=== PATIENT | female | born 1960 | race Caucasian/White ===

== ENCOUNTER → 2016-09-20 | Outpatient (REF) | payer MEDICARE, BC ==
[2016-09-20 19:58] LABS: THYROXINE (T4) 13.7 UG/DL (4.5-12.0)
== END ==
LOC: M LABDRAWC 16:17
PROVIDERS: ATTEND Family Medicine Adult Medicine
DX: N02.9 Recurrent and persistent hematuria with unspecified morphologic changes (principal); E03.9 Hypothyroidism, unspecified; Z79.899 Other long term (current) drug therapy

== ENCOUNTER → 2018-04-03 | Outpatient (REF) | payer MEDICARE, BC ==
[2018-04-03 18:26] LABS: FREE T3 3.3 PG/ML (2.2-4.0); FREE T4 1.43 NG/DL (0.76-1.46); THYROID STIMULATING HORMONE 0.158 uIU/ML (0.358-3.740); THYROXINE (T4) 13.1 UG/DL (4.5-12.0)
[2018-04-03 18:27] LABS: TOTAL T3 112.8 NG/DL (60.0-181.0)
== END ==
LOC: M LABDRWCV 16:22
PROVIDERS: ATTEND Family Medicine Adult Medicine
DX: E03.9 Hypothyroidism, unspecified (principal); E07.89 Other specified disorders of thyroid

== ENCOUNTER 2018-08-13 06:14 | Emergency (ER) | payer MEDICARE, BC ==
[~2018-08-13] VITALS: Ht 157.5 cm; Wt 72.7 kg
[2018-08-13] MEDS ORDERED: CYTO50TA PO (06:22)
[2018-08-13] MEDS ORDERED: PREV1CAP PO (06:22)
[2018-08-13] MEDS ORDERED: SYNT100T PO (06:22)
[2018-08-13] MEDS ORDERED: HYDR25TAB PO (06:22)
--- NOTE | 2018-08-13 06:56 | REPVR ---
EXAM: CT Head Without Contrast EXAM DATE/TIME: 08/13/2018 6:30 AM CLINICAL HISTORY: 57 years old, female; Pain; Headache TECHNIQUE: Imaging protocol: Axial computed tomography images of the head/brain without contrast. Radiation optimization: All CT scans at this facility use at least one of these dose optimization techniques: automated exposure control; mA and/or kV adjustment per patient size (includes targeted exams where dose is matched to clinical indication); or iterative reconstruction. COMPARISON: No relevant prior studies available. FINDINGS: Brain: There is a region of encephalomalacia involving the left frontal lobe as a result of a chronic left MCA territory infarct. No acute large vessel territorial infarct, intracranial hemorrhage, mass effect, or herniation is noted. Brainstem: Unremarkable. Midline shift: There is no midline shift. Ventricles: There is mild ex vacuo dilatation of the frontal horn of the left lateral ventricle. No hydrocephalus is noted. Bones/joints: Unremarkable. No acute fracture. Sinuses: There is a small mucus retention cyst in a right posterior ethmoid air cell. No air-fluid levels are seen in the imaged sinuses. Mastoid air cells: Visualized mastoid air cells are unremarkable. No mastoid effusion. Soft tissues: Unremarkable. IMPRESSION: 1. No CT evidence for an acute intracranial process. 2. Chronic left MCA territory infarct. Electronically signed by: Krishna Hutton On 08/13/2018 06:55:58 AM
[2018-08-13 07:08] LABS: BASO % 0.6 % (0.0-1.0); EOS % 0.2 % (0.0-3.0); HEMOGLOBIN 15.9 g/dl (12.0-15.5); LYMPH # 0.5 10^3/uL (1.5-4.5); LYMPH % 8.1 % (24.0-44.0); MEAN CORPUSCULAR HEMOGLOBIN 33.1 pg (27.0-33.0); MEAN CORPUSCULAR HGB CONC 34.6 g/dl (32.0-36.5); MEAN CORPUSCULAR VOLUME 95.8 fl (80.0-96.0); MONO % 14.5 % (0.0-5.0); NEUTROPHILS % 76.1 % (36.0-66.0); PLATELET COUNT, AUTOMATED 258 10^3/uL (150-450); WHITE BLOOD COUNT 6.6 10^3/uL (4.0-10.0)
[2018-08-13] MEDS ORDERED: AMOX500C PO (07:12)
[2018-08-13] MEDS ORDERED: ONDANSETRON 4MG/2ML VIAL (J2405) IV ONE (07:15)
[2018-08-13] MEDS ORDERED: hydroCHLOROthiazide 25 MG TAB PO ONE (07:15)
[2018-08-13] MEDS: MORPHINE 4 MG/ML 1ML VIAL/SYRINGE (J2270) IV PRN ×2 (07:22→09:41)
[2018-08-13 07:42] LABS: INR 0.93; PROTHROMBIN TIME 12.6 SECONDS (12.1-14.4)
[2018-08-13 07:43] LABS: PARTIAL THROMBOPLASTIN TIME 36.4 SECONDS (25.4-37.6)
[2018-08-13 07:55] LABS: BLOOD UREA NITROGEN 13 MG/DL (7-18); CALCIUM LEVEL 8.8 MG/DL (8.5-10.1); CARBON DIOXIDE LEVEL 27 MEQ/L (21-32); CHLORIDE LEVEL 101 MEQ/L (98-107); CK-MB VALUE MASS < 1.0 NG/ML (<3.6); CPK CREATINE PHOSPHOKINASE 143 U/L (26-192); CREATININE FOR GFR 1.06 MG/DL (0.55-1.30); GLOMERULAR FILTRATION RATE 56.5 (>51); GLUCOSE, FASTING 133 MG/DL (70-100); POTASSIUM SERUM 3.9 MEQ/L (3.5-5.1); SODIUM LEVEL 136 MEQ/L (136-145); TROPONIN I < 0.02 NG/ML (< 0.10)
[2018-08-13 08:36] LABS: INFLUENZA A AMPLIFICATION POSITIVE (NEGATIVE); INFLUENZA B AMPLIFICATION NEGATIVE (NEGATIVE)
--- NOTE | 2018-08-13 09:01 | REP ---
Portable chest, 07:33 a.m., single AP upright view: Comparison is the PA and lateral chest of 2017. The lung dillard are clear. The cardiac size is normal. The adrian, mediastinum, and skeletal structures are unremarkable. 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 Impression: Negative portable chest. There is no interval change. Septal occlusion device. Electronically Signed by Keanu Virk MD 08/13/2018 08:52 A
[2018-08-13] MEDS ORDERED: OSELTAMIVIR PHOSPHATE 75 MG CAP (TAMIFLU) PO ONE (09:30)
[2018-08-13] MEDS ORDERED: CIPROFLOXACIN 500 MG TAB PO ONE (09:30)
--- NOTE | 2018-08-13 11:00 | REP ---
MRA BRAIN WITHOUT CONTRAST: HISTORY: Headache. 3D [id number] MR angiography was performed at the level of the [place] of [place]. A 1.7 mm aneurysm is present at the right middle cerebral artery trifurcation. There is no other aneurysm or arteriovenous malformation. There are no atherosclerotic lesions. The major intracranial vessels are patent. The left vertebral artery is dominant. 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 Electronically Signed by Jimbo Willis MD 08/13/2018 11:04 A
[2018-08-13 11:02] VITALS: BP 146/74
[2018-08-13] MEDS ORDERED: CIPR-249 PO (11:04)
[2018-08-13] MEDS ORDERED: OSEL75CA PO (11:05)
--- NOTE | 2018-08-13 11:11 | REP ---
MR BRAIN WITHOUT CONTRAST: HISTORY: Headache. COMPARISON: CT 08/13/2018. An area of increased signal intensity on T2-weighted images is present in the anterior left temporal and parietal lobes and posterior left frontal lobe. There is diltation of the overlying cortical sulci and anterior horn and body of the left lateral ventricle. This represents and old infarction. Scattered punctate areas of increased signal intensity on T2-weighted images are present in the periventricular and subcortical white matter and brown. This represents small vessel ischemic disease. There is no intraparenchymal hemorrhage, acute infarct, mass, or midline shift. The ventricular system and cortical sulci are dilated consistent with minimal volume loss. There is no extracerebral collection. The sinuses are clear. IMPRESSION: 1. Old left frontotemporoparietal lobe infarction. 2. Minimal small vessel ischemic disease. 3. Minimal volume loss. Electronically Signed by Jimbo Willis MD 08/13/2018 11:13 A
--- NOTE | 2018-08-13 13:17 | ED PDOC ---
Post-Departure Follow-Up dr frausto and dr elise faxed formal report of mra brain for fu Morgan Johnson MD Aug 13, 2018 13:17
--- NOTE | 2018-08-13 21:31 | ECGEPIP ---
Stationary ECG Study [facility] - ED Test Date: 2018-08-13 Pat Name: NIGEL DIGGS Department: Room: - Gender: F Rn Delivery: : 1960 Requested By: Morgan Izquierdo Order Number: [id number] Reading MD: Kayla Jernigan Measurements Intervals [place] Rate: 89 P: 50 [place]: 151 QRS: 3 QRSD: 88 T: 23 QT: 364 QTc: 445 Interpretive Statements SINUS RHYTHM NSTTW ABNORMALITY INCREASED RATE 07/25/11 Electronically Signed On 08-13-2018 21:30:55 EDT by Kayla Jernigan
[2018-08-15] MEDS ORDERED: KEFL500C17 PO (08:46)
== END 2018-08-13 11:36 | disposition home or self-care (01) ==
LOC: M ED 06:14
DX: R51 Headache (principal); J09.X2 Influenza due to identified novel influenza A virus with other respiratory manifestations; N39.0 Urinary tract infection, site not specified; I67.1 Cerebral aneurysm, nonruptured; I67.82 Cerebral ischemia; Z86.73 Personal history of transient ischemic attack (TIA), and cerebral infarction without residual deficits; Z87.440 Personal history of urinary (tract) infections; R41.3 Other amnesia; Z79.899 Other long term (current) drug therapy; Z79.2 Long term (current) use of antibiotics; Z86.79 Personal history of other diseases of the circulatory system
CPT/HCPCS: 70450; 70544; 70551; 71045; 80048; 81001; 82550; 82553; 84484; 85025; 85610; 85730; 86850; 86900; 86901; 87088; 87186; 87502; 87880; 93005; 93041; 94760; 96374; 96375; 96376; 99285; J2270; J2405

== ENCOUNTER → 2018-09-04 | Outpatient (REF) | payer MEDICARE, BC ==
[~2018-09-04] MED LIST: AMOX500C PO; CIPR-249 PO; CYTO50TA PO; HYDR25TAB PO; KEFL500C17 PO; OSEL75CA PO; PREV1CAP PO; SYNT100T PO
[2018-09-05 11:59] LABS: APPEARANCE, URINE CLEAR (CLEAR); BACTERIA, URINE AUTO NEGATIVE (NEGATIVE); BILIRUBIN, URINE AUTO NEGATIVE (NEGATIVE); BLOOD, URINE BLOOD NEGATIVE (NEGATIVE); COLOR, URINE YELLOW (YELLOW); GLUCOSE, URINE (UA) AUTO NEGATIVE (NEGATIVE); KETONE, URINE AUTO NEGATIVE (NEGATIVE); LEUKOCYTE ESTERASE, URINE AUTO NEGATIVE (NEGATIVE); NITRITE, URINE AUTO POSITIVE (NEGATIVE); PROTEIN, URINE AUTO NEGATIVE (NEGATIVE); RBC, URINE AUTO 1 /HPF (0-3); SPECIFIC GRAVITY URINE AUTO 1.008 (1.002-1.035); SQUAMOUS EPITHELIAL CELL UR AU 0 /HPF (0-6); UROBILINOGEN, URINE AUTO 0.2 mg/dL (0.0-2.0); WBC, URINE AUTO 1 /HPF (0-3)
== END ==
LOC: M LABDRAWC 11:22
PROVIDERS: ATTEND Family Medicine Adult Medicine
DX: N39.0 Urinary tract infection, site not specified (principal)

== ENCOUNTER → 2022-09-04 | Outpatient (REF) | payer MEDICARE, BC ==
[~2022-09-04] MED LIST changes: +HYDR-3490 PO; -HYDR25TAB PO
[2022-09-04 18:31] LABS: BASO % 0.6 % (0.0-1.0); EOS # 0.1 10^3/uL (0.0-0.5); EOS % 1.3 % (0.0-3.0); HEMOGLOBIN 14.7 g/dl (12.0-15.5); LYMPH % 19.2 % (24.0-44.0); MEAN CORPUSCULAR HEMOGLOBIN 33.9 pg (27.0-33.0); MEAN CORPUSCULAR HGB CONC 34.2 g/dl (32.0-36.5); MEAN CORPUSCULAR VOLUME 99.3 fl (80.0-96.0); MONO # 0.5 10^3/uL (0.0-0.8); NEUTROPHILS # 3.6 10^3/uL (1.5-8.5); NEUTROPHILS % 68.5 % (36.0-66.0); PLATELET COUNT, AUTOMATED 297 10^3/uL (150-450); RED BLOOD COUNT 4.33 10^6/uL (4.00-5.40); WHITE BLOOD COUNT 5.3 10^3/uL (4.0-10.0)
[2022-09-04 19:08] LABS: ALKALINE PHOSPHATASE 73 U/L (46-116); ALT/SGPT 45 U/L (7.0-40); AST/SGOT 29 U/L (<34); BILIRUBIN,TOTAL 0.6 MG/DL (0.3-1.2); BLOOD UREA NITROGEN 20 MG/DL (9-23); CALCIUM LEVEL 9.6 MG/DL (8.3-10.6); CARBON DIOXIDE LEVEL 29 MMOL/L (20-31); CHLORIDE LEVEL 102 MMOL/L (98-107); CHOLESTEROL LEVEL 235 MG/DL (<200); CHOLESTEROL RISK RATIO 3.53 (<5); CREATININE FOR GFR 0.85 MG/DL (0.55-1.30); GLOMERULAR FILTRATION RATE > 60.0 (>45); GLUCOSE, FASTING 112 MG/DL (74-106); HDL CHOLESTEROL 66.4 MG/DL (>40); LDL CHOLESTEROL 147.2 MG/DL (<100); NON-HDL-C 168.6 MG/DL; SODIUM LEVEL 136 MMOL/L (136-145); THYROID STIMULATING HORMONE 0.033 uIU/ML (0.55-4.78); TOTAL PROTEIN 7.2 G/DL (5.7-8.2); TRIGLYCERIDES LEVEL 107 MG/DL (<150)
== END ==
LOC: M LABDRAWC 17:10
PROVIDERS: ATTEND Internal Medicine Cardiovascular Disease
DX: I25.10 Atherosclerotic heart disease of native coronary artery without angina pectoris (principal); I50.32 Chronic diastolic (congestive) heart failure; E78.5 Hyperlipidemia, unspecified

== ENCOUNTER → 2023-01-05 | Outpatient (CLI) | payer MEDICARE, BC ==
[2023-01-05 14:33] LABS: BASO % 0.7 % (0.0-1.0); EOS # 0.1 10^3/uL (0.0-0.5); EOS % 1.4 % (0.0-3.0); HEMATOCRIT 42.7 % (36.0-47.0); HEMOGLOBIN 14.4 g/dl (12.0-15.5); LYMPH % 18.8 % (24.0-44.0); MEAN CORPUSCULAR HEMOGLOBIN 33.6 pg (27.0-33.0); MEAN CORPUSCULAR HGB CONC 33.7 g/dl (32.0-36.5); MEAN CORPUSCULAR VOLUME 99.8 fl (80.0-96.0); MONO # 0.7 10^3/uL (0.0-0.8); MONO % 12.1 % (2.0-8.0); NEUTROPHILS # 3.7 10^3/uL (1.5-8.5); NEUTROPHILS % 66.5 % (36.0-66.0); PLATELET COUNT, AUTOMATED 306 10^3/uL (150-450); RED BLOOD COUNT 4.28 10^6/uL (4.00-5.40); WHITE BLOOD COUNT 5.5 10^3/uL (4.0-10.0)
== END ==
LOC: M LAB 13:54
PROVIDERS: ATTEND Internal Medicine Hematology & Oncology
DX: E83.110 Hereditary hemochromatosis (principal)

== ENCOUNTER → 2023-12-17 | Outpatient (REF) | payer MEDICARE ==
[2023-12-17 17:51] LABS: BASO % 0.9 % (0.0-1.0); EOS # 0.2 10^3/uL (0.0-0.5); EOS % 3.4 % (0.0-3.0); HEMATOCRIT 44.1 % (36.0-47.0); HEMOGLOBIN 14.9 g/dl (12.0-15.5); LYMPH # 0.8 10^3/uL (1.5-5.0); LYMPH % 17.2 % (24.0-44.0); MEAN CORPUSCULAR HEMOGLOBIN 32.4 pg (27.0-33.0); MEAN CORPUSCULAR HGB CONC 33.8 g/dl (32.0-36.5); MEAN CORPUSCULAR VOLUME 95.9 fl (80.0-96.0); MONO # 0.5 10^3/uL (0.0-0.8); MONO % 10.1 % (2.0-8.0); NEUTROPHILS # 3.2 10^3/uL (1.5-8.5); PLATELET COUNT, AUTOMATED 315 10^3/uL (150-450); WHITE BLOOD COUNT 4.7 10^3/uL (4.0-10.0)
== END ==
LOC: M LABDRAWC 16:44
PROVIDERS: ATTEND Internal Medicine
DX: R79.89 Other specified abnormal findings of blood chemistry (principal)

== ENCOUNTER 2024-01-26 12:49 | Emergency (ER) | payer MEDICARE ==
[~2024-01-26] VITALS: Ht 157.5 cm; Wt 74.8 kg
[2024-01-26] MEDS ORDERED: LOSA50TA28 (13:21)
[2024-01-26] MEDS ORDERED: ASPI81CH33 PO (13:21)
[2024-01-26] MEDS: ACETAMINOPHEN 500 MG TAB PO ONE (14:36)
[2024-01-26] MEDS: FLUORESCEIN OPHTH 1MG STRIP OS ONE (14:36)
[2024-01-26] MEDS: PROPARACAINE 0.5% OPHTH SOL 15ML OS ONE (14:37)
[2024-01-26] MEDS ORDERED: HYDR-3713 PO (14:43)
[2024-01-26] MEDS ORDERED: VALA1TAB5 PO (14:43)
[2024-01-26 14:50] VITALS: BP 146/91; TEMP 98.4; O2SAT 97
== END 2024-01-26 14:55 | disposition home or self-care (01) ==
LOC: M ED 12:49
DX: B02.8 Zoster with other complications (principal); I10 Essential (primary) hypertension; Z88.2 Allergy status to sulfonamides

== ENCOUNTER → 2024-12-02 | Outpatient (REF) | payer MEDICARE ==
[~2024-12-02] MED LIST changes: +ASPI81CH33 PO; +HYDR-3713 PO; +LOSA50TA28; +VALA1TAB5 PO
[2024-12-02 13:15] LABS: BASO # 0.1 10^3/uL (0.0-0.2); BASO % 0.9 % (0.0-1.0); EOS # 0.2 10^3/uL (0.0-0.5); EOS % 2.9 % (0.0-3.0); LYMPH # 1.2 10^3/uL (1.5-5.0); LYMPH % 22.5 % (24.0-44.0); MONO # 0.7 10^3/uL (0.0-0.8); MONO % 12.3 % (2.0-8.0); NEUTROPHILS # 3.3 10^3/uL (1.5-8.5); NEUTROPHILS % 61.2 % (36.0-66.0); PLATELET COUNT, AUTOMATED 295 10^3/uL (150-450)
== END ==
LOC: M LABDRAWC 12:16
PROVIDERS: ATTEND Internal Medicine
DX: R79.89 Other specified abnormal findings of blood chemistry (principal)